=== PATIENT | female | born 2000 | race Two or more races ===

== ENCOUNTER 2021-11-16 20:02 | Emergency (ER) | payer OTHER ==
[~2021-11-16] VITALS: Ht 160 cm; Wt 63.5 kg
[2021-11-16] MEDS ORDERED: PRENATABS FA T1 EACH (20:44)
[2021-11-16] MEDS ORDERED: ZITHROMAX200 MG PO (23:18)
== END 2021-11-17 01:33 | disposition home or self-care (01) ==
LOC: ER 20:02
DX: O98.511 Other viral diseases complicating pregnancy, first trimester (principal); Z3A.12 12 weeks gestation of pregnancy; U07.1 COVID-19; A49.3 Mycoplasma infection, unspecified site

== ENCOUNTER 2024-02-16 20:09 | Emergency (ER) | payer OTHER ==
[~2024-02-16] VITALS: Ht 160 cm; Wt 66.2 kg
[~2024-02-16 20:09] MED LIST: PRENATABS FA T1 EACH; ZITHROMAX200 MG PO
[2024-02-16 22:17] LABS: HEMATOCRIT 35.9 % (36.0-45.00); HEMOGLOBIN 11.9 g/dL (12.0-15.00); MEAN CELL VOLUME 76.3 fL (80.00-100.00); MEAN CORPUSCULAR HEMOGLOBIN 25.2 pg (27.00-32.0); MEAN CORPUSCULAR HGB CONC 33.1 g/dl (32.0-36.0); PLATELET COUNT 323 K/uL (150-450); RED BLOOD COUNT 4.71 M/uL (4.00-6.00)
[2024-02-16 22:36] LABS: CALCIUM 9.2 mg/dL (8.5-10.1); CREATININE SERUM 0.81 mg/dL (0.55-1.02); GFR 86.15; POTASSIUM 4.21 mEq/L (3.5-5.1)
[2024-02-16 22:39] LABS: PH,URINE 6.5 (5.0-8.0); URINE APPEARANCE Clear; URINE BILIRRUBIN Negative (NEGATIVE); URINE BLOOD Negative; URINE COLOR Yellow; URINE GLUCOSE Negative (NEGATIVE); URINE KETONE Negative (NEGATIVE); URINE LEUKOCYTE Moderate; URINE NITRATE Negative; URINE PROTEIN Negative (NEGATIVE); URINE UROBILINOGEN 0.2 E.U./dl
[2024-02-16 22:43] LABS: URINE BACTERIA 1340.4 uL (0.0-1933); URINE EPITHELIAL CELLS 17.6 uL (0.0-38.8); URINE WBC 117.1 uL (0.0-23.2)
[2024-02-16 22:44] LABS: URINE CAST 0.15 uL (0.0-1.40); URINE RBC 0.1 uL (0.0-20.8)
[2024-02-16] MEDS ORDERED: CEFTRIAXONE SODIUM 1,000 MG VIAL IM STA (22:55)
== END 2024-02-16 23:32 | disposition home or self-care (01) ==
LOC: ER 20:11
PROVIDERS: General Practice
DX: N39.0 Urinary tract infection, site not specified (principal); R42 Dizziness and giddiness